=== PATIENT | female | born 2000 | race Caucasian/White ===

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

== ENCOUNTER 2019-08-19 10:28 | Emergency (ER) | payer OTHER, SELFPAY ==
[~2019-08-19] VITALS: Ht 162.6 cm; Wt 70.5 kg
[~2019-08-19 10:28] MED LIST changes: -MACR100C3 PO; +MACR100C43 PO; -PROA1AER; +PROAAER10
[2019-08-19] MEDS ORDERED: NEXP1IMP SC (10:34)
[2019-08-19 12:15] LABS: INFLUENZA A AMPLIFICATION NEGATIVE (NEGATIVE); INFLUENZA B AMPLIFICATION NEGATIVE (NEGATIVE)
[2019-08-19 12:41] VITALS: BP 121/70
== END 2019-08-19 12:51 | disposition home or self-care (01) ==
LOC: M ED 10:28
DX: J06.9 Acute upper respiratory infection, unspecified (principal); R00.0 Tachycardia, unspecified; J45.909 Unspecified asthma, uncomplicated; Z88.8 Allergy status to other drugs, medicaments and biological substances

== ENCOUNTER → 2020-04-27 | Outpatient (REF) | payer OTHER ==
[~2020-04-27] MED LIST changes: +NEXP1IMP SC
[2020-04-27 17:19] LABS: HEMATOCRIT 37.7 % (36.0-47.0); HEMOGLOBIN 12.4 g/dl (12.0-15.5); MEAN CORPUSCULAR HEMOGLOBIN 28.2 pg (27.0-33.0); MEAN CORPUSCULAR HGB CONC 32.9 g/dl (32.0-36.5); MEAN CORPUSCULAR VOLUME 85.9 fl (80.0-96.0); PLATELET COUNT, AUTOMATED 262 10^3/uL (150-450); RED BLOOD COUNT 4.39 10^6/uL (4.00-5.40); WHITE BLOOD COUNT 5.8 10^3/uL (4.0-10.0)
[2020-04-27 19:21] LABS: CHLAMYDIA DNA AMPLIFICATION NEGATIVE (NEGATIVE); GC DNA AMPLIFICATION NEGATIVE (NEGATIVE)
[2020-04-27 22:56] LABS: HIV 1&2 SCREEN CENTAUR NEGATIVE (NEGATIVE)
[2020-04-29 11:11] LABS: HEPATITIS C VIRUS ABY INDEX 0.1 INDEX (<0.8)
== END ==
LOC: M PLALAB 14:19
PROVIDERS: ATTEND Advanced Practice Midwife
DX: Z34.91 Encounter for supervision of normal pregnancy, unspecified, first trimester (principal)

== ENCOUNTER → 2020-05-26 | Outpatient (CLI) | payer OTHER | LOC: M PLALAB 13:35 | PROVIDERS: ATTEND Advanced Practice Midwife | DX: O23.91 Unspecified genitourinary tract infection in pregnancy, first trimester (principal); Z36.89 Encounter for other specified antenatal screening ==

== ENCOUNTER → 2020-07-25 | Outpatient (CLI) | payer OTHER | LOC: M WHC 08:58 | PROVIDERS: ATTEND Obstetrics & Gynecology | DX: Z34.82 Encounter for supervision of other normal pregnancy, second trimester (principal) ==

== ENCOUNTER → 2020-09-08 | Outpatient (CLI) | payer OTHER ==
[2020-09-08 17:47] LABS: BASO % 0.3 % (0.0-1.0); EOS # 0.2 10^3/uL (0.0-0.5); EOS % 2.9 % (0.0-3.0); HEMATOCRIT 34.6 % (36.0-47.0); HEMOGLOBIN 11.2 g/dl (12.0-15.5); LYMPH # 1.3 10^3/uL (1.5-5.0); LYMPH % 17.2 % (24.0-44.0); MEAN CORPUSCULAR HEMOGLOBIN 28.6 pg (27.0-33.0); MEAN CORPUSCULAR HGB CONC 32.4 g/dl (32.0-36.5); MEAN CORPUSCULAR VOLUME 88.5 fl (80.0-96.0); MONO # 0.5 10^3/uL (0.0-0.8); NEUTROPHILS # 5.2 10^3/uL (1.5-8.5); PLATELET COUNT, AUTOMATED 219 10^3/uL (150-450); RED BLOOD COUNT 3.91 10^6/uL (4.00-5.40); WHITE BLOOD COUNT 7.3 10^3/uL (4.0-10.0)
== END ==
LOC: M PLALAB 14:06
PROVIDERS: ATTEND Advanced Practice Midwife
DX: Z34.82 Encounter for supervision of other normal pregnancy, second trimester (principal); Z3A.00 Weeks of gestation of pregnancy not specified

== ENCOUNTER → 2020-09-26 | Outpatient (CLI) | payer OTHER ==
--- NOTE | 2020-09-28 07:13 | REP ---
INDICATION: F/U ANATOMY COMPARISON: 09/12/2020 TECHNIQUE: Transabdominal obstetrical ultrasound with color Doppler evaluation. FINDINGS: Examination demonstrates a single live intrauterine in breech presentation. motion is identified by technologist. Placenta is noted posterior and grade 1 without evidence for placenta previa or abruption. Amniotic fluid volume is normal. Cervix measures 4.0 cm in length and appears closed.. Gestational age by LMP 30 weeks 0 days with CHINEDU 12/05/2020. Gestational age by current measurements 29 weeks 4 days with CHINEDU 12/08/2020. FHR equals 150 beats per minute. Estimated weight 1340 grams (15thpercentile). Echogenic focus within the left cardiac ventricle consistent with prominent chordae tendineae. Evaluation of the cardiac ventricular outflow tracts is again limited due to positioning. A small amount of pericardial fluid adjacent to the right ventricle is suspected and of uncertain clinical significance or etiology. IMPRESSION: Single live intrauterine in breech presentation demonstrating appropriate interval growth. Anatomical limitations/findings as described above. <Electronically signed by Eric Lock > 09/28/20 0747
== END ==
LOC: M WHC 11:44
PROVIDERS: ATTEND Advanced Practice Midwife
DX: Z36.2 Encounter for other antenatal screening follow-up (principal); Z3A.29 29 weeks gestation of pregnancy

== ENCOUNTER → 2020-11-09 | Outpatient (REF) | payer OTHER ==
[~2020-11-09] MED LIST changes: +ALBU1.25; +ALBU8.5H; +PRED10TA2 PO
== END ==
LOC: M PLALAB 14:38
PROVIDERS: ATTEND Obstetrics & Gynecology
DX: Z3A.36 36 weeks gestation of pregnancy (principal)

== ENCOUNTER → 2020-11-23 | Outpatient (CLI) | payer OTHER ==
[~2020-11-23] MED LIST changes: +BETA5CR EXT; +PRENTAB9 PO
== END ==
LOC: M WHC 10:42
PROVIDERS: ATTEND Obstetrics & Gynecology
DX: Z3A.38 38 weeks gestation of pregnancy (principal)

== ENCOUNTER → 2020-11-23 | Outpatient (CLI) | payer OTHER ==
--- NOTE | 2020-11-23 15:18 | REP ---
INDICATION: GROWTH SIZE < DATES COMPARISON: 09/26/2020 TECHNIQUE: Transabdominal obstetrical ultrasound with color Doppler evaluation. FINDINGS: Examination demonstrates a single live intrauterine in cephalic presentation. motion is identified by technologist. Placenta is noted posterior and grade 3 without evidence for placenta previa or abruption. Amniotic fluid volume is normal. Cervix measures 3.2 cm in length and appears closed.. Gestational age by LMP 38 weeks 2 days with CHINEDU 12/05/2020. Gestational age by current measurements 35 weeks 4 days with CHINEDU 12/24/2020. FHR equals 150 beats per minute. BPD: 8.7 cm 35 weeks 1 day HC: 31.5 cm 35 weeks 3 days AC: 31.9 cm 35 weeks 6 days FL: 7.0 cm 36 weeks 0 days HL: 6.2 cm 35 weeks 5 days HC/AC: 0.99 Estimated weight 2766 grams (11th percentile based on age by LMP). TRACI: 11.9 cm (7.3-23.5) Umbilical artery SD ratio: 2.00 (1.54-3.34) IMPRESSION: Single live advanced gestation in cephalic presentation demonstrating appropriate interval growth. No gross abnormalities are identified. <Electronically signed by Eric Lock > 11/23/20 [id number]
== END ==
LOC: M WHC 11:01
PROVIDERS: ATTEND Obstetrics & Gynecology
DX: Z36.9 Encounter for antenatal screening, unspecified (principal); Z3A.38 38 weeks gestation of pregnancy

== ENCOUNTER 2020-11-28 13:25 | Inpatient (IN) | payer OTHER ==
[2020-11-28] VITALS (20 sets, daily range): BP systolic 113–136; BP diastolic 59–82
[~2020-11-28] VITALS: Ht 167.6 cm; Wt 92.3 kg
[~2020-11-28 13:25] MED LIST changes: -BETA5CR EXT; -PRENTAB9 PO
[2020-11-28] MEDS ORDERED: PRENTAB9 PO (13:49)
[2020-11-28] MEDS ORDERED: BETA5CR EXT (13:49)
[2020-11-28] MEDS ORDERED: LACTATED RINGER'S 1000 ML IV STA (15:00)
[2020-11-28] MEDS ORDERED: miSOPROStol 50 MCG 1/2 TAB (S0191) PO ONE (15:30)
[2020-11-28 15:31] LABS: HEMATOCRIT 34.8 % (36.0-47.0); HEMOGLOBIN 11.2 g/dl (12.0-15.5); MEAN CORPUSCULAR HEMOGLOBIN 27.8 pg (27.0-33.0); MEAN CORPUSCULAR HGB CONC 32.2 g/dl (32.0-36.5); MEAN CORPUSCULAR VOLUME 86.4 fl (80.0-96.0); PLATELET COUNT, AUTOMATED 225 10^3/uL (150-450); RED BLOOD COUNT 4.03 10^6/uL (4.00-5.40); WHITE BLOOD COUNT 7.8 10^3/uL (4.0-10.0)
--- NOTE | 2020-11-28 15:46 | HPEPDOC ---
Obstetrical History & Physical General Date of Admission Nov 28, 2020 at 13:25 Primary Care Physician: JP SUTHERLAND CNM History of Present Illness Ofe is a 20 y/o at 39.0wks (CHINEDU 12/05/20) by 1st trimester ultrasound at 8.1 weeks EGA on 04/27/20. She started care at [facility] in the first trimester. Her has been complicated by IUGR in the 10th percentile, for which she is opting for an IOL today. Medical history significant for asthma, albuterol inhaler last used "a few months ago." Today she reports active movement, irregular contractions. Denies vaginal bleeding and LOF. Chief Complaint: Induction of labor ( growth in 10th percentile) Information Provided By: Patient Age: 20 : 2 Term: 1 Pre-term: 0 Abortions: 0 Livin Care Care: Good Care Dating Final EDC: Dec 05, 2020 Final EDC by: 1st trimester () 1st Trimester Date: April 27, 2020 Weeks + Days: 8.1 EGA at Admission: 39.0 Antepartum Course Diagnos(e)s growth in 10th percentile Height (inches): 66 Pre- weight (lbs.): 170 Admission Weight (lbs.): 203 Change in Weight (lbs.): 33 Past Medical History Past Obstetrical History #1: Past Obstetrical History: Primgravida Date of Delivery: Oct 22, 2017 Gestation: 40 Type of Delivery: Spontaneous Vaginal Del. Sex of : Male (6lb 12oz.) Complications: No Past Obstetrical History #2: Past Obstetrical History: Multigravida (Current ) UX DESIGN LEAD History: Other (Treated for Bacterial Vaginosis 11/09/20) Past Medical History Medical History Asthma, uses only an albuterol inhaler occasionally Depression, no medications currently, was admitted prior to for over dose GERD Posterior Rhinorrhea Sebaceous cyst inner R labia Surgical History: Tonsilectomy, Other (Tubes in ears) Family History Significant Family History: Asthma, Cancer (Grandmother--stomach cancer), Heart disease, Hypertension, Renal disease (Kidney failure), Seizures, Other Family History 1 brother with Autism, 3 other siblings with MR Congenital heart defects, 1 brother, and 1 sister, no surgeries needed to repair Social History Marital Status: Family situation: Spouse/partner home Psychosocial History: Depression (Not currently on medication) * Smoker: non-smoker Alcohol: Denies Drugs: denies Imunizations Tdap status: current Allergies Coded Allergies: amitriptyline (Verified Allergy, Unknown, 08/19/19) Medications Scheduled Prednisone (Prednisone) 10 Mg Tablet, 10 MG PO ASDIRECTED 3 po day 1-3; 2 po day 4-5; 1 po day 6-7 No.137/Iron/Folic Acd ( Vitamin Tablet) 1 Each Tablet, 1 TAB PO DAILY Scheduled PRN Betamethasone Dip (Betamethasone Dipropionate) 15 Gm Oint...g., 1 DOSE EXT PRN PRN for SEE DOSE INSTRUCTIONS Miscellaneous Medications Albuterol Sulfate (Albuterol Sulfate) 1.25 Mg/3 Ml Vial.neb Albuterol Sulfate (Albuterol Sulfate Hfa) 8.5 Gm Hfa.aer.ad Physical Examination Physical Examination GENERAL: Alert and oriented times three. ABDOMEN: Gravid and non-tender to touch. FETUS: Is vertex (VTX) by sterile vaginal examination (SVE), fetus is vertex (VTX) by Tirso. EFW 6-6.5lbs by Leopolds. HEART RATE: Regular rate and rhythm. LUNGS: Clear to auscultation (CTA) bilaterally. EXTREMITIES: No edema. No clonus. Deep tendon reflexes (DTRs) + 2. Laboratory Data 24H LABS Laboratory Tests 2 11/28/20 13:44: Serology Scanned Report Hepatitis B Testing Pertinent Laboratoy Data Blood Type: A+ RBC Antibody Screen: Negative HIV: Negative Hepatitis B: Negative Hepatitis C: Negative Rapid Plasma Reagin: Nonreactive Rubella: Immune Chlamydia/Gonorrhea: Negative Group B Streptococcus: Negative Glucose Tolerance Test: 76 Steroid Therapy Steroid Therapy: No Vaginal Examination Dilation: 1cm Effacement: 50% Station: -2 Cervical Consistency: Medium Cervical Position: Posterior Presentation: Cephalic presentation Assessment Heart Rate (FHR): 130 Variability: Moderate Accelerations: Positive Decelerations: None Tocometer Contractions: Yes Frequency: irregular, other (2-10min) Duration: greater than 60 seconds Strength: palpated as mild Multi-drug resistant Organism: No history of MDRO Assessment/Plan Assessment IUP at 39.0 weeks IOL for IUGR in 10th percentile. GBS Negative Category 1 FHT Plan Admit and orient to Labor and Delivery. Activity as tolerated. Diet: Regular with Cytotec then clear liquids with Pitocin. Group B Streptococcus (GBS) negative. Labs and intravenous (IV) per unit protocol. Counseled on Pitocin, Cytotec, Cervical Balloons, and induction of labor (IOL). Lactated Ringers (LR): Bolus 800 mL prior to epidural. Consult Anesthesia for epidural. Anticipate normal spontaneous delivery (). C-S as appropriate. JP SUTHERLAND CNM Nov 28, 2020 15:11
[2020-11-28] MEDS ORDERED: SLF 3 ML SYR IV PRN (16:45)
--- NOTE | 2020-11-28 21:12 | IPNPDOC ---
Obstetrical Progress Note Date of Service Nov 28, 2020 Subjective Ofe reports some light cramping. Denies vaginal bleeding, LOF. Reports active movement. Objective Vital Signs Date Time Temp Pulse Resp B/P (MAP) Pulse Ox O2 Delivery O2 Flow Rate FiO2 11/28/20 17:43 99.2 85 20 118/64 (82) Assessment Heart Rate (FHR): 145 Variability: Moderate Accelerations: Present Decelerations: None Heart Rate Tracing: Category I Tocometer Contractions: Yes Frequency: regular, every 2-5 min. Duration: greater than 60 seconds Strength: palpated as mild Sterile Vaginal Examination Dilation: 1cm (1-2) Effacement (%): 60% Station: -2 Cervical Consistency: Soft Cervical Position: Middle Postion/Presentation: Cephalic presentation Assessment and Plan Age: 20 : 2 Term: 1 Pre-term: 0 Abortions: 0 Livin EGA at Admission: 39.0 Status: Reassuring Group B Streptococcus: Negative Anticipate: Vaginal Delivery Additional Comments Cooks catheter placed with 60mL in uterine and 40mL in vaginal balloon, taped to leg for traction. Start Pitocin. JP SUTHERLAND CNM Nov 28, 2020 21:11
[2020-11-28] MEDS ORDERED: FAMOTIDINE 20 MG TAB PO SCH (21:25)
[2020-11-28] MEDS ORDERED: OXYTOCIN DRIP 30 UNITS in IV 1 EA IV SCH (21:30)
[2020-11-28] MEDS: LR 1,000 ML IV SCH ×2 (21:35→23:40)
[2020-11-28] MEDS ORDERED: SLF 3 ML SYR IV SCH (22:00)
[2020-11-28] MEDS ORDERED: FENTANYL 2MCG/ML ROPIVACAINE 0.2% IN 0.9% NACL 100ML IVBAG As Ordered ONE (22:54)
[2020-11-29] VITALS (55 sets, daily range): BP systolic 89–138; BP diastolic 48–91
[2020-11-29] MEDS ORDERED: LACTATED RINGER'S 1000 ML IV PRN (00:45)
[2020-11-29] MEDS ORDERED: EPIDURAL/PCA KEYS XX PRN (00:45)
[2020-11-29] MEDS ORDERED: ONDANSETRON 4MG/2ML VIAL IV PRN ×2 (00:45→12:30)
[2020-11-29] MEDS ORDERED: EPIDURAL COMMENT XX SCH (00:45)
[2020-11-29] MEDS: FENTANYL/ROPIVACAINE/NACL BAG 100 ML EPIDURAL SCH ×2 (00:45→07:57)
[2020-11-29] MEDS ORDERED: REFRIGERATOR IV KEYS XX PRN (00:45)
[2020-11-29] MEDS ORDERED: NALOXONE INJ 0.4MG/1ML VIAL (J2310 PER 1MG) IV PRN (00:45)
[2020-11-29] MEDS ORDERED: diphenhydrAMINE 50MG/ML VIAL (J1200) IV PRN (00:45)
[2020-11-29] MEDS: ePHEDrine SULFATE 25 MG/5 ML(5MG/ML) SYRINGE IV PRN ×3 (00:59→07:28)
[2020-11-29] MEDS: LR 1,000 ML IV SCH (02:02)
--- NOTE | 2020-11-29 09:10 | IPNPDOC ---
Obstetrical Progress Note Date of Service Nov 29, 2020 Subjective Patient has been comfortable with her epidural. She reports feeling moist. Objective Vital Signs Date Time Temp Pulse Resp B/P (MAP) Pulse Ox O2 Delivery O2 Flow Rate FiO2 11/29/20 08:35 99 16 114/62 (79) 11/29/20 07:05 98.3 Assessment Heart Rate (FHR): 140 Variability: Moderate Accelerations: Positive Decelerations: None Heart Rate Tracing: Category I Tocometer Contractions: Yes Frequency: regular Assessment and Plan Age: 20 : 2 Term: 1 Pre-term: 0 Abortions: 0 Livin Weeks & Days 39.1 Status: Reassuring Anticipate: Vaginal Delivery Additional Comments IV Pitocin was stopped due to multiple lates after her epidural. She spontaneously ruptured this morning-grossly ruptured. Category I strip now. IV Pitocin restarted. JP SUTHERLAND CNM Nov 29, 2020 09:10
[2020-11-29 11:49] LABS: CORD GAS ABE V -10.2; CORD GAS HCO3 V 16.9 MEQ/L; CORD GAS O2 SAT V 75.6 %; CORD GAS PCO2 V 41.4 mmHg; CORD GAS PH V 7.229 UNITS; CORD GAS PO2 V 37.7 mmHg; CORD GAS SBC V 16.1 MEQ/L; CORD GAS TCO2 V 18.2 MEQ/L
[2020-11-29 11:52] LABS: CORD GAS ABE A -13.3; CORD GAS HCO3 A 16.7 MEQ/L; CORD GAS O2 SAT A 52.7 %; CORD GAS PCO2 A 55.4 mmHg; CORD GAS PH A 7.098 UNITS; CORD GAS PO2 A 30.3 mmHg; CORD GAS SBC A 13.5 MEQ/L; CORD GAS TCO2 A 18.4 MEQ/L
--- NOTE | 2020-11-29 12:14 | DNPDOC ---
[facility] Delivery Note Delivery Note DATE OF DELIVERY: 11/29/2020 TIME OF DELIVERY: 1141 Spontaneous vaginal delivery. SILK PRESSER: Dr. Nick Zelaya DO FACOG ANESTHESIA: Epidural. LACERATION: None ESTIMATED BLOOD LOSS:. 200 mL. FINDINGS: 6 pound 3 ounce (2820g) male infant, Score, 7 and 9. DELIVERY SUMMARY: The active phase and second stage of labor progressed in normal fashion. I noted posterior asynclitism and easily manually rotated the baby to LEODAN at the 0 station. She received Pitocin augmentation throughout her labor course. After approximately 1 hour of pushing, the head delivered in the LEODAN position, and restituted LOT. No nuchal cord was noted. The anterior shoulder delivered with gentle downward guidance and the remainder of the body delivered with ease. The baby was placed on the patient's chest. Delayed cord clamping occurred for approximately 1 minute. The cord was then doubly clamped and cut. IV Pitocin was bolused to actively manage the third stage of labor. The placenta delivered intact without any difficulty within 10 minutes of delivery. The uterine fundus was noted to be firm and 2 cm below the umbilicus. The cervix, vagina, vulva and perineum were inspected.. No laceration was noted. Excellent hemostasis was noted. Sponge, needle and instrument counts were correct per protocol. DO DEANDRE Oliver JONATHAN R. DO Nov 29, 2020 12:13
[2020-11-29] MEDS ORDERED: LR 1,000 ML IV SCH (12:20)
[2020-11-29] MEDS ORDERED: OXYTOCIN DRIP 30 UNITS in IV 1 EA IV SCH (12:20)
[2020-11-29] MEDS ORDERED: RHOGAM 300 MCG (1500 IU) INJ (J2790) IM SCH (12:30)
[2020-11-29] MEDS ORDERED: ACETAMINOPHEN TAB 650MG DOSE (2X325MG) PO PRN (12:30)
[2020-11-29] MEDS ORDERED: MEASLES,MUMPS,RUBELLA VACCINE INJ (MMR-II) (90707) SC SCH (12:30)
[2020-11-29] MEDS ORDERED: IBUPROFEN 600MG TAB PO PRN (12:30)
[2020-11-29] MEDS ORDERED: BENZOCAINE 20% HEMORRHOIDAL OINTMENT 28GM TUBE TOP PRN (12:30)
[2020-11-29] MEDS ORDERED: DOCUSATE SODIUM 100MG CAPSULE PO PRN (12:30)
[2020-11-29] MEDS: IBUPROFEN 800 MG TAB PO PRN (14:37)
[2020-11-30] MEDS: ACETAMINOPHEN 500 MG TAB PO PRN ×2 (05:12→12:35)
[2020-11-30 05:31] VITALS: BP 123/70
--- NOTE | 2020-11-30 08:06 | IPNPDOC ---
Progress Note Date of Service: Nov 30, 2020 Day#: 1 Progress Note SUBJECT: Status post . She has been ambulating, voiding spontaneously without issue and tolerating regular diet. Lochia decreasing/minimal. Patient is ambulating well. OBJECTIVE: VITAL SIGNS: Within normal limits, afebrile. Alert and oriented times three. Abdomen: Fundus firm at U-2. Soft, NTTP. ASSESSMENT: Status post uncomplicated spontaneous vaginal delivery. Vitals within normal limits, afebrile, hemodynamically stable with no evidence of infection. PLAN: Possible discharge to home today. Tylenol and Motrin for pain. Routine instructions/precautions reviewed. Routine PP visit in 6 weeks in clinic. VS, I&O, 24H, Fishbone Vital Signs/I&O Vital Signs Date Time Temp Pulse Resp B/P (MAP) Pulse Ox O2 Delivery O2 Flow Rate FiO2 11/30/20 05:31 98.3 98 17 123/70 (87) 98 Room Air I&O- Last 24 Hours up to 6 AM 11/30/20 06:00 Intake Total 3030 ml Output Total 1200 ml Balance 1830 ml Laboratory Data 24H LABS Laboratory Tests 2 11/29/20 11:44: Cord Arterial Blood pH 7.098, Cord Arterial Blood PCO2 55.4, Cord Arterial Blood PO2 30.3, Cord Arterial Blood HCO3 16.7, Cord Arterial Blood Total CO2 18.4, Cord Arterial Blood Base Excess -13.3, Cord Arterial Base Excess (Standard 13.5, Cord Arterial Bld Oxygen Saturation 52.7, Cord Venous Blood pH 7.229, Cord Venous Blood PCO2 41.4, Cord Venous Blood PO2 37.7, Cord Venous Blood HCO3 16.9, Cord Venous Blood Total CO2 18.2, Cord Venous Base Excess (Actual) -10.2, Cord Venous Base Excess (Standard) 16.1, Cord Venous Blood Oxygen Saturation 75.6 BRANDAN ROSALES DO Nov 30, 2020 08:06
[2020-11-30] MEDS ORDERED: PRENATAL VITAMINS CHEWABLE TABLET PO SCH (09:00)
[2020-11-30] MEDS: IBUPROFEN 800 MG TAB PO PRN (10:47)
== END 2020-11-30 15:55 | disposition home or self-care (01) | DRG 560 ==
LOC: M LDI 13:25 → M OBS 11-29 14:02
PROVIDERS: ADMIT Advanced Practice Midwife; ATTEND Advanced Practice Midwife
PROC: 3E0P7GC Introduction of Other Therapeutic Substance into Female Reproductive, Via Natural or Artificial Opening (ICD-10-PCS; 2020-11-28)
PROC: 10E0XZZ Delivery of Products of Conception, External Approach (ICD-10-PCS; principal; 2020-11-29)
DX: O36.5930 Maternal care for other known or suspected poor fetal growth, third trimester, not applicable or unspecified (principal); Z3A.39 39 weeks gestation of pregnancy; Z37.0 Single live birth

== ENCOUNTER 2021-05-19 23:13 | Emergency (ER) | payer OTHER ==
[~2021-05-19] VITALS: Ht 165.1 cm; Wt 79.6 kg
[~2021-05-19 23:13] MED LIST changes: +BETA5CR EXT; +PRENTAB9 PO
[2021-05-20] MEDS ORDERED: KETOROLAC 60MG 2ML VIAL IM ONE (00:40)
[2021-05-20 01:09] LABS: BASO % 0.8 % (0.0-1.0); EOS # 0.4 10^3/uL (0.0-0.5); EOS % 7.6 % (0.0-3.0); HEMATOCRIT 39.3 % (36.0-47.0); HEMOGLOBIN 12.7 g/dl (12.0-15.5); LYMPH # 1.9 10^3/uL (1.5-5.0); LYMPH % 36.1 % (24.0-44.0); MEAN CORPUSCULAR HGB CONC 32.3 g/dl (32.0-36.5); MEAN CORPUSCULAR VOLUME 86.8 fl (80.0-96.0); MONO # 0.4 10^3/uL (0.0-0.8); MONO % 8.2 % (2.0-8.0); NEUTROPHILS # 2.5 10^3/uL (1.5-8.5); NEUTROPHILS % 47.1 % (36.0-66.0); PLATELET COUNT, AUTOMATED 253 10^3/uL (150-450); RED BLOOD COUNT 4.53 10^6/uL (4.00-5.40); WHITE BLOOD COUNT 5.3 10^3/uL (4.0-10.0)
[2021-05-20 01:41] LABS: ERYTHROCYTE SEDIMENTATION RATE 12 mm/hr (0-20)
[2021-05-20] MEDS ORDERED: IBUP80TA PO (02:18)
[2021-05-20] MEDS ORDERED: NEUR300C PO (02:18)
[2021-05-20] MEDS ORDERED: PRED20TA PO (02:18)
[2021-05-20] MEDS ORDERED: METH-1165 PO (02:18)
--- NOTE | 2021-05-20 02:49 | REPVR ---
PROCEDURE INFORMATION: Exam: CT Cervical Spine Without Contrast Exam date and time: 05/20/2021 12:38 AM Age: 21 years old Clinical indication: Patient HX: PT woke w neck pain; Additional info: Headache/neck pain TECHNIQUE: Imaging protocol: Computed tomography images of the cervical spine without contrast. Radiation optimization: All CT scans at this facility use at least one of these dose optimization techniques: automated exposure control; mA and/or kV adjustment per patient size (includes targeted exams where dose is matched to clinical indication); or iterative reconstruction. COMPARISON: CT Spine,cervical w/o contrast 02/10/2017 8:26 PM FINDINGS: Limitations: Examination is limited by body habitus. Vertebrae: No acute fracture. Normal alignment. Incidental small right C7 rib. C2-C3: No significant disc protrusion. No severe spinal canal stenosis. No significant neural foraminal narrowing. C3-C4: No significant disc protrusion. No severe spinal canal stenosis. No significant neural foraminal narrowing. C4-C5: No significant disc protrusion. No severe spinal canal stenosis. No significant neural foraminal narrowing. C5-C6: No significant disc protrusion. No severe spinal canal stenosis. No significant neural foraminal narrowing. C6-C7: No significant disc protrusion. No severe spinal canal stenosis. No significant neural foraminal narrowing. C7-T1: No significant disc protrusion. No severe spinal canal stenosis. No significant neural foraminal narrowing. Soft tissues: Unremarkable. Lungs: Lung apices are normal. IMPRESSION: No acute fracture. Electronically signed by: Jose Cruz Urbina On 05/20/2021 02:48:32 AM
--- NOTE | 2021-05-20 02:49 | REPVR ---
PROCEDURE INFORMATION: Exam: CT Head Without Contrast Exam date and time: 05/20/2021 12:38 AM Age: 21 years old Clinical indication: Pain; Headache not specified; Additional info: Headache/neck pain TECHNIQUE: Imaging protocol: Computed tomography of the head without contrast. Radiation optimization: All CT scans at this facility use at least one of these dose optimization techniques: automated exposure control; mA and/or kV adjustment per patient size (includes targeted exams where dose is matched to clinical indication); or iterative reconstruction. COMPARISON: CT Head without contrast 02/10/2017 8:26 PM FINDINGS: Brain: Normal. No hemorrhage. Unremarkable white matter. No mass effect. Cerebral ventricles: No ventriculomegaly. Paranasal sinuses: Visualized sinuses are unremarkable. No fluid levels. Mastoid air cells: Visualized mastoid air cells are well aerated. Bones/joints: Unremarkable. No acute fracture. Soft tissues: Unremarkable. IMPRESSION: No acute findings. Electronically signed by: Jose Cruz Urbina On 05/20/2021 02:49:07 AM
[2021-05-20 03:11] VITALS: BP 125/82
== END 2021-05-20 03:12 | disposition home or self-care (01) ==
LOC: M ED 23:13
DX: M54.2 Cervicalgia (principal); J45.909 Unspecified asthma, uncomplicated; F41.9 Anxiety disorder, unspecified; F32.9 Major depressive disorder, single episode, unspecified; Z88.1 Allergy status to other antibiotic agents
CPT/HCPCS: 70450; 72125; 80047; 84702; 85025; 85652; 86140; 96372; 99283; J1885

== ENCOUNTER → 2022-06-11 | Outpatient (REF) | payer OTHER ==
[~2022-06-11] MED LIST changes: +ALBU2.5V10 INH; -ALBU83IN INH; +BENZ1LOZ9 PO; +BENZ200C70 PO; +ETON68IM SC; +IBUP80TA PO; +METH-1165 PO; +NEUR300C PO; -NEXP1IMP SC; +PRED20TA PO
== END ==
LOC: M PLALAB 08:30
PROVIDERS: ATTEND Advanced Practice Midwife
DX: Z12.4 Encounter for screening for malignant neoplasm of cervix (principal)

== ENCOUNTER 2022-06-12 10:24 | Emergency (ER) | payer OTHER ==
[~2022-06-12] VITALS: Ht 165.1 cm; Wt 76.8 kg
[~2022-06-12 10:24] MED LIST changes: -BENZ1LOZ9 PO; -BENZ200C70 PO
[2022-06-12 11:37] LABS: RSV AMPLIFICATION NEGATIVE (NEGATIVE)
[2022-06-12 13:46] LABS: BASO % 0.5 % (0.0-1.0); EOS # 0.2 10^3/uL (0.0-0.5); EOS % 2.6 % (0.0-3.0); HEMATOCRIT 37.7 % (36.0-47.0); HEMOGLOBIN 12.3 g/dl (12.0-15.5); LYMPH # 1.3 10^3/uL (1.5-5.0); LYMPH % 22.9 % (24.0-44.0); MEAN CORPUSCULAR HEMOGLOBIN 28.3 pg (27.0-33.0); MEAN CORPUSCULAR HGB CONC 32.6 g/dl (32.0-36.5); MEAN CORPUSCULAR VOLUME 86.9 fl (80.0-96.0); MONO # 0.4 10^3/uL (0.0-0.8); MONO % 6.7 % (2.0-8.0); NEUTROPHILS # 3.9 10^3/uL (1.5-8.5); NEUTROPHILS % 67.1 % (36.0-66.0); PLATELET COUNT, AUTOMATED 259 10^3/uL (150-450); RED BLOOD COUNT 4.34 10^6/uL (4.00-5.40); WHITE BLOOD COUNT 5.8 10^3/uL (4.0-10.0)
[2022-06-12 14:20] LABS: BLOOD UREA NITROGEN 8 MG/DL (7-18); CALCIUM LEVEL 9.3 MG/DL (8.5-10.1); CARBON DIOXIDE LEVEL 26 MEQ/L (21-32); CHLORIDE LEVEL 110 MEQ/L (98-107); CREATININE FOR GFR 0.56 MG/DL (0.55-1.30); GLOMERULAR FILTRATION RATE > 60.0 (>60); GLUCOSE, FASTING 90 MG/DL (70-100); SODIUM LEVEL 140 MEQ/L (136-145)
[2022-06-12] MEDS ORDERED: BENZ1LOZ9 PO (14:43)
[2022-06-12] MEDS ORDERED: BENZ200C70 PO (14:43)
[2022-06-12 14:56] VITALS: BP 122/71
== END 2022-06-12 14:57 | disposition home or self-care (01) ==
LOC: M ED 10:24
DX: J06.9 Acute upper respiratory infection, unspecified (principal); Z88.8 Allergy status to other drugs, medicaments and biological substances

== ENCOUNTER → 2023-04-25 | Outpatient (REF) | payer OTHER ==
[~2023-04-25] MED LIST changes: +BENZ1LOZ9 PO; +BENZ200C70 PO; +MONT-5 PO; -SING10TA32 PO
== END ==
LOC: M LAB REF 22:19
PROVIDERS: ATTEND Physician Assistant
DX: J02.9 Acute pharyngitis, unspecified (principal)

== ENCOUNTER → 2023-09-25 | Outpatient (REF) | payer OTHER | LOC: M LAB REF 20:51 | PROVIDERS: ATTEND Physician Assistant | DX: B34.9 Viral infection, unspecified (principal) ==

== ENCOUNTER → 2023-10-29 | Outpatient (REF) | payer OTHER ==
[2023-10-29 19:38] LABS: MONO SCRN NEGATIVE (NEGATIVE)
== END ==
LOC: M LAB REF 18:15
PROVIDERS: ATTEND Nurse Practitioner Family
DX: R07.0 Pain in throat (principal)

== ENCOUNTER → 2024-07-06 | Outpatient (CLI) | payer OTHER ==
[~2024-07-06] MED LIST changes: +PROHANCE 279.3MG/ML 15ML VIAL ONE
== END ==
LOC: M PLAIMG 08:10
PROVIDERS: ATTEND Otolaryngology
DX: R22.1 Localized swelling, mass and lump, neck (principal); R13.10 Dysphagia, unspecified

== ENCOUNTER → 2024-09-09 | Outpatient (CLI) | payer OTHER ==
[~2024-09-09] MED LIST changes: -PROHANCE 279.3MG/ML 15ML VIAL ONE
== END ==
LOC: M RAD 15:30
PROVIDERS: ATTEND Nurse Practitioner Family
DX: S81.801A Unspecified open wound, right lower leg, initial encounter (principal); W18.30XA Fall on same level, unspecified, initial encounter; Y92.009 Unspecified place in unspecified non-institutional (private) residence as the place of occurrence of the external cause

== ENCOUNTER 2024-09-20 09:01 | Emergency (ER) | payer OTHER ==
[~2024-09-20] VITALS: Ht 165.1 cm; Wt 79.2 kg
[2024-09-20] MEDS ORDERED: CLIN1GEL22 (09:39)
[2024-09-20] MEDS ORDERED: AZEL1SPR3 (09:39)
[2024-09-20] MEDS ORDERED: FAMO1TAB11 (09:39)
[2024-09-20] MEDS ORDERED: FLUTISP (09:39)
[2024-09-20] MEDS ORDERED: CETI-24 (09:39)
[2024-09-20 10:58] LABS: BASO % 0.4 % (0.0-1.0); EOS # 0.1 10^3/uL (0.0-0.5); EOS % 1.2 % (0.0-3.0); HEMATOCRIT 37.5 % (36.0-47.0); HEMOGLOBIN 11.9 g/dl (12.0-15.5); LYMPH # 0.8 10^3/uL (1.5-5.0); MEAN CORPUSCULAR HEMOGLOBIN 26.3 pg (27.0-33.0); MEAN CORPUSCULAR HGB CONC 31.7 g/dl (32.0-36.5); MEAN CORPUSCULAR VOLUME 82.8 fl (80.0-96.0); MONO # 0.5 10^3/uL (0.0-0.8); MONO % 10.2 % (2.0-8.0); NEUTROPHILS # 3.5 10^3/uL (1.5-8.5); NEUTROPHILS % 71.8 % (36.0-66.0); PLATELET COUNT, AUTOMATED 178 10^3/uL (150-450); RED BLOOD COUNT 4.53 10^6/uL (4.00-5.40); WHITE BLOOD COUNT 4.9 10^3/uL (4.0-10.0)
[2024-09-20 11:02] LABS: ERYTHROCYTE SEDIMENTATION RATE 16 mm/hr (0-20)
[2024-09-20 11:30] LABS: C REACTIVE PROTEIN QUANTITATIV < 0.40 MG/DL (<1.0)
[2024-09-20 11:32] LABS: BLOOD UREA NITROGEN 8 MG/DL (9-23); CALCIUM LEVEL 9.4 MG/DL (8.5-10.1); CARBON DIOXIDE LEVEL 24 MMOL/L (20-31); CHLORIDE LEVEL 112 MMOL/L (98-107); CREATININE FOR GFR 0.64 MG/DL (0.55-1.30); GLOMERULAR FILTRATION RATE > 60.0 (>60); GLUCOSE, FASTING 89 MG/DL (60-100); POTASSIUM SERUM 3.8 MMOL/L (3.5-5.1); SODIUM LEVEL 140 MMOL/L (136-145)
[2024-09-20] MEDS: NS 1,000 ML IV ONE (11:34)
[2024-09-20] MEDS: dexAMETHasone 20MG/5ML VIAL IV ONE (11:35)
[2024-09-20] MEDS: KETOROLAC 30 MG/ML 1ML VIAL IV ONE (11:35)
[2024-09-20] MEDS ORDERED: ISOVUE-370 76% 100ML VIAL As Ordered ONE (11:43)
[2024-09-20] MEDS: AMPICILLIN SOD/SULBACTAM SOD 3 GM in D5W MINI-BAG PLUS 100 ML IV ONE (13:13)
[2024-09-20] MEDS ORDERED: PRED20TA PO (13:52)
[2024-09-20 14:07] VITALS: BP 127/68; TEMP 99.1; O2SAT 100
== END 2024-09-20 14:08 | disposition home or self-care (01) ==
LOC: M ED 09:01
DX: J35.1 Hypertrophy of tonsils (principal); R59.0 Localized enlarged lymph nodes; K21.9 Gastro-esophageal reflux disease without esophagitis; Z88.8 Allergy status to other drugs, medicaments and biological substances; Z79.2 Long term (current) use of antibiotics; Z79.51 Long term (current) use of inhaled steroids; Z79.899 Other long term (current) drug therapy
CPT/HCPCS: 70491; 80048; 83605; 85025; 85652; 86140; 87040; 87486; 87581; 87633; 87798; 87880; 96361; 96374; 99283; J1100; J1885; Q9967

== ENCOUNTER → 2024-09-21 | Outpatient (CLI) | payer OTHER ==
[~2024-09-21] MED LIST changes: +AMOX875T2 PO; +AZEL1SPR3; +CETI-24; +CLIN1GEL22; +FAMO1TAB11; +FLUTISP; +LIDO15SO8 PO; +ONDA-282 PO
[2024-09-21 16:40] LABS: BASO % 0.2 % (0.0-1.0); EOS % 0.2 % (0.0-3.0); HEMOGLOBIN 11.2 g/dl (12.0-15.5); LYMPH # 0.9 10^3/uL (1.5-5.0); LYMPH % 16.3 % (24.0-44.0); MEAN CORPUSCULAR HEMOGLOBIN 26.6 pg (27.0-33.0); MEAN CORPUSCULAR VOLUME 83.1 fl (80.0-96.0); MONO # 0.5 10^3/uL (0.0-0.8); MONO % 8.3 % (2.0-8.0); NEUTROPHILS % 74.8 % (36.0-66.0); PLATELET COUNT, AUTOMATED 174 10^3/uL (150-450); RED BLOOD COUNT 4.21 10^6/uL (4.00-5.40); WHITE BLOOD COUNT 5.4 10^3/uL (4.0-10.0)
[2024-09-21 16:46] LABS: ERYTHROCYTE SEDIMENTATION RATE 12 mm/hr (0-20)
== END ==
LOC: M LAB 16:23
PROVIDERS: ATTEND Nurse Practitioner Family
DX: R22.1 Localized swelling, mass and lump, neck (principal)

== ENCOUNTER 2024-09-22 03:44 | Emergency (ER) | payer OTHER ==
[~2024-09-22] VITALS: Ht 167.6 cm; Wt 78.7 kg
[~2024-09-22 03:44] MED LIST changes: -AMOX875T2 PO; -LIDO15SO8 PO; -ONDA-282 PO
[2024-09-22 05:02] LABS: BASO % 0.2 % (0.0-1.0); HEMATOCRIT 34.9 % (36.0-47.0); HEMOGLOBIN 11.4 g/dl (12.0-15.5); LYMPH # 0.7 10^3/uL (1.5-5.0); LYMPH % 14.7 % (24.0-44.0); MEAN CORPUSCULAR HEMOGLOBIN 27.1 pg (27.0-33.0); MEAN CORPUSCULAR HGB CONC 32.7 g/dl (32.0-36.5); MEAN CORPUSCULAR VOLUME 82.9 fl (80.0-96.0); MONO # 0.4 10^3/uL (0.0-0.8); MONO % 7.3 % (2.0-8.0); NEUTROPHILS # 3.8 10^3/uL (1.5-8.5); NEUTROPHILS % 77.6 % (36.0-66.0); PLATELET COUNT, AUTOMATED 209 10^3/uL (150-450); RED BLOOD COUNT 4.21 10^6/uL (4.00-5.40); WHITE BLOOD COUNT 4.9 10^3/uL (4.0-10.0)
[2024-09-22 05:19] LABS: BLOOD UREA NITROGEN 7 MG/DL (9-23); CALCIUM LEVEL 8.9 MG/DL (8.5-10.1); CARBON DIOXIDE LEVEL 23 MMOL/L (20-31); CHLORIDE LEVEL 110 MMOL/L (98-107); CREATININE FOR GFR 0.66 MG/DL (0.55-1.30); GLOMERULAR FILTRATION RATE > 60.0 (>60); GLUCOSE, FASTING 96 MG/DL (60-100); POTASSIUM SERUM 3.7 MMOL/L (3.5-5.1); SODIUM LEVEL 138 MMOL/L (136-145)
[2024-09-22] MEDS: NS 1,000 ML IV ONE (05:24)
[2024-09-22] MEDS: ONDANSETRON 4MG 2ML VIAL IV ONE ×2 (05:25→07:23)
[2024-09-22] MEDS: KETOROLAC 30 MG/ML 1ML VIAL IV ONE ×2 (05:25→07:23)
[2024-09-22] MEDS: ACETAMINOPHEN *IV* 1,000 MG in IV 1 EA IV ONE (05:25)
[2024-09-22] MEDS: cefTRIAXone SOD 1 GM in DEXTROSE 5% (D5W) ADV/MINI-BAG 50 ML IV ONE (07:23)
[2024-09-22] MEDS: dexAMETHasone 20MG/5ML VIAL IV ONE (10:33)
[2024-09-22] MEDS: LIDOCAINE VISCOUS 2% SOLN 15ML UDC SSP ONE (10:33)
[2024-09-22] MEDS: NS 1,000 ML IV SCH (10:33)
[2024-09-22 10:55] LABS: MONO REFLEX EBV COMP NEGATIVE (NEGATIVE)
[2024-09-22] MEDS ORDERED: LIDO15SO8 PO (11:43)
[2024-09-22] MEDS ORDERED: AMOX875T2 PO (11:43)
[2024-09-22] MEDS ORDERED: ONDA-282 PO (11:43)
[2024-09-22 12:00] VITALS: BP 103/60; TEMP 98.8; O2SAT 96
[2024-09-24 12:42] LABS: EBV AB TO NUCLEAR ANTIGEN > 600.00 U/mL (<18.00); EBV VIRAL CAPSID AG IGM < 36.00 U/mL (<36.00)
== END 2024-09-22 12:12 | disposition home or self-care (01) ==
LOC: M ED 03:44
DX: J02.9 Acute pharyngitis, unspecified (principal); K21.9 Gastro-esophageal reflux disease without esophagitis; Z88.8 Allergy status to other drugs, medicaments and biological substances; Z79.51 Long term (current) use of inhaled steroids; Z79.2 Long term (current) use of antibiotics; Z79.52 Long term (current) use of systemic steroids; Z79.899 Other long term (current) drug therapy
CPT/HCPCS: 80048; 83605; 85025; 86308; 86664; 86665; 87040; 87486; 87581; 87633; 87798; 87880; 96365; 96366; 96374; 96375; 99284; J0131; J0696; J1100; J1885; J2405

== ENCOUNTER → 2024-10-16 | Outpatient (CLI) | payer OTHER ==
[~2024-10-16] MED LIST changes: +AMOX875T2 PO; +LIDO15SO8 PO; +ONDA-282 PO
== END ==
LOC: M LAB 10:15
PROVIDERS: ATTEND Internal Medicine Nephrology
DX: A68.9 Relapsing fever, unspecified (principal)

== ENCOUNTER → 2024-12-17 | Outpatient (CLI) | payer OTHER | LOC: M LAB 12:22 | PROVIDERS: ATTEND Otolaryngology | DX: A68.9 Relapsing fever, unspecified (principal) ==

== ENCOUNTER → 2024-12-17 | Outpatient (CLI) | payer OTHER ==
[2024-12-19 01:28] LABS: MYELOPEROXIDASE ANTIBODY < 1.0 AI (<1.0)
== END ==
LOC: M LAB 12:41
PROVIDERS: ATTEND Internal Medicine
DX: R89.4 Abnormal immunological findings in specimens from other organs, systems and tissues (principal)

== ENCOUNTER → 2025-01-26 | Outpatient (REF) | payer OTHER ==
[2025-01-26 18:26] LABS: BASO % 0.8 % (0.0-1.0); EOS # 0.1 10^3/uL (0.0-0.5); EOS % 2.4 % (0.0-3.0); HEMATOCRIT 36.6 % (36.0-47.0); HEMOGLOBIN 11.8 g/dl (12.0-15.5); LYMPH # 1.7 10^3/uL (1.5-5.0); LYMPH % 45.9 % (24.0-44.0); MEAN CORPUSCULAR HEMOGLOBIN 26.8 pg (27.0-33.0); MEAN CORPUSCULAR HGB CONC 32.2 g/dl (32.0-36.5); MEAN CORPUSCULAR VOLUME 83.2 fl (80.0-96.0); MONO # 0.4 10^3/uL (0.0-0.8); NEUTROPHILS # 1.5 10^3/uL (1.5-8.5); NEUTROPHILS % 40.6 % (36.0-66.0); PLATELET COUNT, AUTOMATED 224 10^3/uL (150-450); WHITE BLOOD COUNT 3.7 10^3/uL (4.0-10.0)
[2025-01-26 18:30] LABS: BLOOD UREA NITROGEN 8 MG/DL (9-23); CALCIUM LEVEL 9.5 MG/DL (8.5-10.1); CARBON DIOXIDE LEVEL 24 MMOL/L (20-31); CHLORIDE LEVEL 110 MMOL/L (98-107); GLOMERULAR FILTRATION RATE > 60.0 (>60); GLUCOSE, FASTING 90 MG/DL (60-100); POTASSIUM SERUM 4.6 MMOL/L (3.5-5.1); SODIUM LEVEL 142 MMOL/L (136-145)
[2025-01-26 18:32] LABS: THYROID STIMULATING HORMONE 1.291 uIU/ML (0.55-4.78)
== END ==
LOC: M LAB REF 17:50
PROVIDERS: ATTEND Nurse Practitioner Family
DX: Z01.818 Encounter for other preprocedural examination (principal); E66.3 Overweight

== ENCOUNTER → 2025-10-10 | Outpatient (REF) | payer OTHER | LOC: M LAB REF 11:57 | PROVIDERS: ATTEND Nurse Practitioner Family | DX: R19.7 Diarrhea, unspecified (principal) ==

== ENCOUNTER → 2025-10-11 | Outpatient (CLI) | payer OTHER ==
[2025-10-11 12:53] LABS: APPEARANCE, URINE HAZY (CLEAR); BACTERIA, URINE AUTO NEGATIVE (NEGATIVE); BILIRUBIN, URINE AUTO NEGATIVE (NEGATIVE); BLOOD, URINE BLOOD NEGATIVE (NEGATIVE); GLUCOSE, URINE (UA) AUTO NEGATIVE (NEGATIVE); KETONE, URINE AUTO NEGATIVE (NEGATIVE); LEUKOCYTE ESTERASE, URINE AUTO NEGATIVE (NEGATIVE); NITRITE, URINE AUTO NEGATIVE (NEGATIVE); PROTEIN, URINE AUTO NEGATIVE (NEGATIVE); RBC, URINE AUTO 1 /HPF (0-3); SPECIFIC GRAVITY URINE AUTO 1.013 (1.002-1.035); SQUAMOUS EPITHELIAL CELL UR AU 10 /HPF (0-6); UROBILINOGEN, URINE AUTO 0.2 mg/dL (0.0-2.0); WBC, URINE AUTO 1 /HPF (0-3)
[2025-10-11 13:26] LABS: IRON (FE) 80.0 UG/DL (50-170)
[2025-10-11 13:28] LABS: VITAMIN B12 LEVEL 446.0 PG/ML (211-911)
== END ==
LOC: M EKG 09:06
PROVIDERS: ATTEND Nurse Practitioner Family
DX: R00.2 Palpitations (principal); D64.9 Anemia, unspecified; R19.7 Diarrhea, unspecified; R69 Illness, unspecified

== ENCOUNTER → 2025-10-19 | Outpatient (CLI) | payer OTHER | LOC: M PLAIMG 12:39 | PROVIDERS: ATTEND Nurse Practitioner Family | DX: R07.89 Other chest pain (principal) ==